=== PATIENT | female | born 2000 | race Two or more races ===

== ENCOUNTER 2022-09-23 23:09 | Emergency (ER) | payer OTHER ==
[~2022-09-23] VITALS: Ht 157.5 cm; Wt 102.1 kg
[2022-09-24] MEDS ORDERED: PEPCID AC20 MG PO (02:16)
[2022-09-24] MEDS ORDERED: PROTONIX20 MG PO (02:16)
[2022-09-24] MEDS ORDERED: CARAFATE1 GM PO (02:16)
== END 2022-09-24 02:38 | disposition home or self-care (01) ==
LOC: ER 23:09
DX: K29.70 Gastritis, unspecified, without bleeding (principal); K11.0 Atrophy of salivary gland; R10.9 Unspecified abdominal pain

== ENCOUNTER 2022-09-30 17:30 | Emergency (ER) | payer OTHER ==
[~2022-09-30] VITALS: Ht 160 cm; Wt 90.7 kg
[~2022-09-30 17:30] MED LIST: CARAFATE1 GM PO; PEPCID AC20 MG PO; PROTONIX20 MG PO
== END 2022-10-01 01:56 | disposition home or self-care (01) ==
LOC: ER 17:30
DX: K29.70 Gastritis, unspecified, without bleeding (principal); K29.80 Duodenitis without bleeding; N39.0 Urinary tract infection, site not specified